=== PATIENT | female | born 1980 | race Caucasian/White ===

== ENCOUNTER 2018-06-26 21:02 | Emergency (ER) | payer OTHER ==
--- NOTE | 2018-06-26 21:22 | EDPHY ---
H & P Time Seen by Provider: 06/26/18 21:08 HPI/ROS: CHIEF COMPLAINT: Postoperative bleeding HISTORY OF PRESENT ILLNESS: 37-year-old female postop day 6 post gender reassignment surgery/vaginoplasty by Dr. Mahoney at [facility] arrives via private vehicle complaining of bleeding after she took a shower this evening and noticed bleeding from her incision site in the right inguinal incision. Her packing was removed earlier today and she notes that she has been able to urinate without complications. No dizziness. No syncope or near syncope. REVIEW OF SYSTEMS: 10 systems reviewed and negative with the exception of the elements mentioned in the history of present illness PAST MEDICAL & SURGICAL HISTORY: postop day 6 post vaginoplasty with skin graft vagina SOCIAL HISTORY: Nonsmoker PHYSICAL EXAM (Prior to examination, patient consented to physical exam, hands were washed and my usual and customary physical exam procedures followed) 1) GENERAL: Well-developed, well-nourished, alert and oriented. Appears anxious 2) HEAD: Normocephalic, atraumatic 3) HEENT: Pupils equal, round, reactive to light bilaterally. Sclera anicteric. 4) NECK: Full range of motion, no meningeal signs. 5) LUNGS: Clear auscultation bilaterally, no wheezes, no rhonchi, no retractions. 6) HEART: Regular rate and rhythm, no murmur, no heave, no gallop. 7) ABDOMEN: No guarding, no rebound, no focal tenderness, 8) MUSCULOSKELETAL: No peripheral edema or discoloration. 9) BACK: No visual or palpable abnormality. 10) SKIN: No rash, no petechiae. [11) : Ecchymosis noted in the genitalia and suprapubic region. There is no bleeding from the vagina proper. In the right inguinal incision patient has clots and subacute appearing blood. No evidence of wound infection. No dehiscence. DIFFERENTIAL DIAGNOSIS: In no particular order include but limited to post operative bleed, postoperative hematoma, postoperative infection Constitutional: Initial Vital Signs Temperature (C) 36.6 C 06/26/18 21:28 Heart Rate 99 06/26/18 21:28 Respiratory Rate 16 06/26/18 21:28 Blood Pressure 160/70 H 06/26/18 21:28 O2 Sat (%) 98 06/26/18 21:28 O2 Delivery Mode Room Air Allergies/Adverse Reactions: No Known Allergies Allergy (Unverified 06/26/18 21:31) Home Medications: Medication Instructions Recorded NK [No Known Home Meds] 06/26/18 Medical Decision Making ED Course/Re-evaluation: 10:03 p.m.: Consultation with [facility] OBGYN Dr Eric Fisher 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 Mahoney later this week. Patient is hemostatic. Bleeding has now stopped. The bleeding appears to be have been subacute, postoperative hematoma. Patient is feeling significant improvement after removal of clots. Vital signs normal. No orthostasis. I discussed this with the patient and she feels comfortable being discharged home. Care of patient under supervision of secondary supervising physician Dr Jack with whom I discussed case. Departure - Departure Disposition: Home, Routine, Self-Care Clinical Impression: Postoperative hematoma involving genitourinary system following genitourinary procedure Condition: Good Instructions: Postoperative Bleeding (ED) Referrals: Follow-up, with Dr. Mahoney tomorrow [Other] - As per Instructions
[2018-06-26 22:17] VITALS: BP 137/84
== END 2018-06-26 22:17 | disposition home or self-care (01) ==
DX: N99.840 Postprocedural hematoma of a genitourinary system organ or structure following a genitourinary system procedure (principal)